=== PATIENT | male | born 1950 | race Caucasian/White ===

== ENCOUNTER 2020-12-24 18:34 | Emergency (ER) | payer MEDICARE ==
[~2020-12-24] VITALS: Ht 182.9 cm; Wt 64.2 kg
[2020-12-24 20:19] LABS: BASO # 0.1 x10^3/uL (0.0-0.2); BASO % 1 % (0-3); EOS # 0.1 x10^3/uL (0.0-0.7); EOS % 1 % (0-3); HEMATOCRIT 34.3 % (39.0-53.0); HEMOGLOBIN 11.7 g/dL (13.0-17.5); LYMPH # 1.2 x10^3/uL (1.0-4.8); LYMPH % 12 % (24-48); MEAN CORPUSCULAR HEMOGLOBIN 34 pg (25-35); MEAN CORPUSCULAR HGB CONC 34 g/dL (31-37); MEAN CORPUSCULAR VOLUME 99 fL (79-100); MONO # 0.9 x10^3/uL (0.0-1.1); MONO % 9 % (0-9); NEUT % 78 % (31-73); PLATELET COUNT 312 x10^3/uL (140-400); RED BLOOD COUNT 3.48 x10^6/uL (4.30-5.70); RED CELL DISTRIBUTION WIDTH 13.4 % (11.5-14.5); WHITE BLOOD COUNT 10.2 x10^3/uL (4.0-11.0)
[2020-12-24 20:32] LABS: ALBUMIN 3.3 g/dL (3.4-5.0); ALBUMIN/GLOBULIN RATIO 0.9 (1.0-1.7); CALCIUM 8.8 mg/dL (8.5-10.1); CREATININE 1.1 mg/dL (0.7-1.3); GFR 66.4; POTASSIUM 4.5 mmol/L (3.5-5.1); TOTAL BILIRUBIN 0.7 mg/dL (0.2-1.0); TOTAL PROTEIN 6.8 g/dL (6.4-8.2)
[2020-12-24 20:34] LABS: BILIRUBIN,URINE NEG (NEG); CLARITY,URINE HAZY; COLOR,URINE YELLOW; GLUCOSE,URINE NEG (NEG); NITRITE,URINE NEG (NEG)
[2020-12-24 20:35] LABS: BACTERIA,URINE 0 /HPF (0-FEW); SQUAMOUS EPITHELIAL CELL,UR OCC /LPF; WBC,URINE RARE /HPF (0-4)
--- NOTE | 2020-12-24 20:36 | RAD ---
STUDY: 1. CT head without contrast 2. CT cervical spine without contrast INDICATION: Fall, recent head surgery for hematoma evacuation COMPARISON: None available TECHNIQUE: Axial CT imaging of the head and cervical spine performed without the use of intravenous contrast. Sagittal and coronal reformats were obtained. One or more of the following individualized dose reduction techniques were utilized for this examinat ion: 1. Automated exposure control 2. Adjustment of the mA and/or kV according to patient size 3. Use of iterative reconstruction technique. FINDINGS: CT HEAD: Postoperative changes of left craniotomy seen. There is a left hemispheric subdural fluid collection and, are perhaps related to recent surgery. There is a small left to right midline shift measuring ap proximately 6.5 mm with mild effacement of the left lateral ventricle. There is diffuse low-attenuati on in both periventricular regions perhaps small vessel ischemic changes. Visualized orbits, paranasal sinuses and the mastoid air cells are clear. CT CERVICAL SPINE: Normal sagittal alignment is preserved. The craniocervical and C1-2 articular relation is maintained. The vertebral body heights are preserved. There is narrowing of several intervertebral disc spaces i ncluding C4/5, C5/6 and C6/7 with osteophytic spurring. There is no acute compression fracture. No pr evertebral soft tissue swelling is identified. The airway is preserved. Axial imaging at base interve rtebral disc levels demonstrates mild disc osteophyte complex with mild central canal stenosis. IMPRESSION: CT HEAD: 1. Postoperative changes of left parietal craniotomy with fluid and pneumocephalus in the left hemis phere probably postoperative. There is mild [id number] midline shift of 6.5 mm.. Since the preop C T is not available, an interval change cannot be assessed. CT CERVICAL SPINE: 1. Spondylotic changes and multilevel disc degenerative changes are seen. No acute abnormality seen. Electronically signed by: Florinda Storm MD (12/24/2020 8:33 PM) [facility]
--- NOTE | 2020-12-24 21:57 | PHYS DOC ---
Past History Past Medical History: Depression, GERD, High Cholesterol, Other Additional Past Medical Histor: aortic valve stenosis, SDH, uncal herniation Past Surgical History: Other Alcohol Use: None General Adult EDM: Chief Complaint: MECHANICAL FALL HPI: HPI: Patient is a 70-year-old male presents after a fall. Patient was recently treated at for a subdural hematoma. Staff says that they found patient with his feet up in the bed and has had down on the floor. Patient was complaining of head and neck pain. Staff is unsure of how long patient was on the floor. Staff states patient is at baseline. Neuro exam is negative. Review of Systems: Review of Systems: Constitutional: Denies fever or chills Eyes: Denies change in visual acuity HENT: Denies nasal congestion or sore throat Respiratory: Denies cough or shortness of breath Cardiovascular: Denies chest pain or edema GI: Denies abdominal pain, nausea, vomiting, bloody stools or diarrhea : Denies dysuria Musculoskeletal: Reports neck and back pain Integument: Denies rash Neurologic: Denies headache, focal weakness or sensory changes Endocrine: Denies polyuria or polydipsia Lymphatic: Denies swollen glands Psychiatric: Denies depression or anxiety Physical Exam: PE: Constitutional: Well developed, well nourished, no acute distress, non-toxic appearance. [] HENT: Normocephalic, atraumatic, bilateral external ears normal, oropharynx moist, no oral exudates, nose normal. [] Eyes: PERRLA, EOMI, conjunctiva normal, no discharge. [] Neck: Normal range of motion, midline tenderness, denies supple, no stridor. [] Cardiovascular:Heart rate regular rhythm, no murmur [] Lungs & Thorax: Bilateral breath sounds clear to auscultation [] Abdomen: Bowel sounds normal, soft, no tenderness, no masses, no pulsatile masses. [] Skin: Warm, dry, no erythema, no rash. [] Back: Thoracic, midline tenderness, no CVA tenderness. [] Extremities: No tenderness, no cyanosis, no clubbing, ROM intact, no edema. [] Neurologic: Alert and oriented X 3, normal motor function, normal sensory f unction, no focal deficits noted. [] Psychologic: Affect normal, judgement normal, mood normal. [] Current Patient Data: Labs: Laboratory Tests Test 12/24/20 20:00 12/24/20 20:10 White Blood Count 10.2 x10^3/uL (4.0-11.0) Red Blood Count 3.48 x10^6/uL (4.30-5.70) L Hemoglobin 11.7 g/dL (13.0-17.5) L Hematocrit 34.3 % (39.0-53.0) L Mean Corpuscular Volume 99 fL (79-100) Mean Corpuscular Hemoglobin 34 pg (25-35) Mean Corpuscular Hemoglobin Concent 34 g/dL (31-37) Red Cell Distribution Width 13.4 % (11.5-14.5) Platelet Count 312 x10^3/uL (140-400) Neutrophils (%) (Auto) 78 % (31-73) H Lymphocytes (%) (Auto) 12 % (24-48) L Monocytes (%) (Auto) 9 % (0-9) Eosinophils (%) (Auto) 1 % (0-3) Basophils (%) (Auto) 1 % (0-3) Neutrophils # (Auto) 8.0 x10^3uL (1.8-7.7) H Lymphocytes # (Auto) 1.2 x10^3/uL (1.0-4.8) Monocytes # (Auto) 0.9 x10^3/uL (0.0-1.1) Eosinophils # (Auto) 0.1 x10^3/uL (0.0-0.7) Basophils # (Auto) 0.1 x10^3/uL (0.0-0.2) Sodium Level 140 mmol/L (136-145) Potassium Level 4.5 mmol/L (3.5-5.1) Chloride Level 105 mmol/L (98-107) Carbon Dioxide Level 28 mmol/L (21-32) Anion Gap 7 (6-14) Blood Urea Nitrogen 30 mg/dL (8-26) H Creatinine 1.1 mg/dL (0.7-1.3) Estimated GFR (Cockcroft-Gault) 66.4 BUN/Creatinine Ratio 27 (6-20) H Glucose Level 120 mg/dL (70-99) H Calcium Level 8.8 mg/dL (8.5-10.1) Total Bilirubin 0.7 mg/dL (0.2-1.0) Aspartate Amino Transferase (AST) 42 U/L (15-37) H Alanine Aminotransferase (ALT) 46 U/L (16-63) Alkaline Phosphatase 116 U/L (46-116) Total Protein 6.8 g/dL (6.4-8.2) Albumin 3.3 g/dL (3.4-5.0) L Albumin/Globulin Ratio 0.9 (1.0-1.7) L Urine Collection Type U cath Urine Color Yellow Urine Clarity Hazy Urine pH 6.0 Urine Specific Galva 1.025 Urine Protein Neg (NEG-TRACE) Urine Glucose (UA) Neg mg/dL (NEG) Urine Ketones (Stick) Neg mg/dL (NEG) Urine Blood Small (NEG) Urine Nitrite Neg (NEG) Urine Bilirubin Neg (NEG) Urine Urobilinogen Dipstick 1.0 mg/dL (0.2 mg/dL) Urine Leukocyte Esterase Neg (NEG) Urine RBC 11-20 /HPF (0-2) Urine WBC Rare /HPF (0-4) Urine Squamous Epithelial Cells Occ /LPF Urine Bacteria 0 /HPF (0-FEW) Vital Signs: Vital Signs Date Time Temp Pulse Resp B/P (MAP) Pulse Ox O2 Delivery O2 Flow Rate FiO2 12/24/20 18:54 98.2 73 18 119/69 (86) 96 Room Air EKG: EKG: [] Radiology/Procedures: Radiology/Procedures: [] Heart Score: C/O Chest Pain: No Risk Factors: Risk Factors: DM, Current or recent (<one month) smoker, HTN, HLP, family history of CAD, obesity. Risk Scores: Score 0 - 3: 2.5% MACE over next 6 weeks - Discharge Home Score 4 - 6: 20.3% MACE over next 6 weeks - Admit for Clinical Observation Score 7 - 10: 72.7% MACE over next 6 weeks - Early Invasive Strategies Course & Med Decision Making: Course & Med Decision Making Pertinent Labs and Imaging studies reviewed. (See chart for details) [] 70-year-old male who presents after a fall. Patient was recently treated at [facility] for a subdural hematoma. Patient was reporting head and neck pain after fall. Staff was unsure of how long patient was on the floor. CT of head and neck showed mild [id number] midline shift of 6.5 mm. Consulted [facility] and spoke with Brianda with . reviewed CT results and previous results from . He stated that CT results were improved and much better from a few weeks ago. All labs are unremarkable. UA is negative for infection. Patient will be sent back to rehab. Patient is not reporting any pain at this time. Patient neuro exam is negative and at baseline. Patient may experience soreness the next few days from falling out of bed. Inform staff patient to take ibuprofen and Tylenol for discomfort.Patient is hemodynamically stable and ready to be discharged back home. Transferred patient care to @ [id number] Disclaimer: Dinorah Disclaimer: This electronic medical record was generated, in whole or in part, using a voice recognition dictation system. Departure Departure: Impression: Primary Impression: Fall Qualified Codes: W19.XXXA - Unspecified fall, initial encounter Disposition: HOME / SELF CARE / HOMELESS Condition: STABLE Referrals: PCP,UNKNOWN (PCP) Patient Instructions: Fall Prevention and Home Safety, [id number] Additional Instructions: EMERGENCY DEPARTMENT GENERAL DISCHARGE INSTRUCTIONS Thank you for coming to [facility] (ED) today and trusting us with you care. We trust that you had a positivie experience in our Emergency Department. If you wish to speak to the department management, you may call the director at [phone]. YOUR FOLLOW UP INSTRUCTIONS ARE FOLLOWS: 1. Do you have a private Doctor? If you do not have a private doctor, please ask for a resource list of physicians or clinics that may be able to assist you with follow up care. 2. The Emergency Physician has interpreted your x-rays. The X-Ray specialist will also review them. If there is a change in the findings, you will be notified in 48 hours when at all possible. 3. A lab test or culture has been done, your results will be reviewed and you will be notified if you need a change in treatment. ADDITIONAL INSTRUCTIONS AND INFORMATION: 1. Your care today has been supervised by a physician who is specially trained in emergency care. Many problems require more than one evaluation for a complete diagnosis and treatment. We recommend that you schedule your follow up appointment as recommended to ensure complete treatment of you illness or injury. If you are unable to obtain follow up care and continue to have a problem, or if your condition worsens, we recommend that you return to the ED. 2. We are not able to safely determine your condition over the phone nor are we able to give sound medical advice over the phone. For these safety reasons, if you call for medical advice we will ask you to come to the ED for further evaluation. 3. If you have any questions regarding these discharge instructions please call the ED at [phone]. SAFETY INFORMATION: In the interest of safety, wellness, and injury prevention; we encourage you to wear your sealbelt, if you smoke; quite smoking, and we encourage family to use a protective helmet for bicycling and other sporting events that present an increased risk for head injury. IF YOUR SYMPTOMS WORSEN OR NEW SYMPTOMS DEVELOP, OR YOU HAVE CONCERNS ABOUT YOUR CONDITION; OR IF YOUR CONDITION WORSENS WHILE YOU ARE WAITING FOR YOUR FOLLOW UP APPOINTMENT; EITHER CONTACT YOUR PRIMARY CARE DOCTOR, THE PHYSICIAN WHOSE NAME AND NUMBER YOU WERE GIVEN, OR RETURN TO THE ED IMMEDIATELY. ADE SMITH APRN Dec 24, 2020 21:57
[2020-12-24 22:09] VITALS: BP 169/85
== END 2020-12-24 22:35 | disposition home or self-care (01) ==
LOC: ER 18:34
DX: S06.5X0A Traumatic subdural hemorrhage without loss of consciousness, initial encounter (principal); M54.2 Cervicalgia; K21.9 Gastro-esophageal reflux disease without esophagitis; E78.5 Hyperlipidemia, unspecified; W18.09XA Striking against other object with subsequent fall, initial encounter; Y93.89 Activity, other specified; Y92.89 Other specified places as the place of occurrence of the external cause; Y99.8 Other external cause status
CPT/HCPCS: 36415; 70450; 72125; 80053; 81001; 85025; 99284-25

== ENCOUNTER 2021-01-28 07:50 | Emergency (ER) | payer MEDICARE ==
[~2021-01-28] VITALS: Ht 182.9 cm; Wt 64.2 kg
[2021-01-28 07:56] VITALS: BP 134/65
--- NOTE | 2021-01-28 07:59 | PHYS DOC ---
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 The patient did not lose consciousness, the event was witnessed by staff were moving the patient in the bed and the patient has not changes behavior since the incident this morn ing. The patient complains of a slight headache from the trauma, but denies further symptoms. He does admit to a history of subdural hematoma in the past. He denies any blood thinner use, neck pain, further pain anywhere else, further traumatic events, fever, cough, shortness of breath. He was recently released from the [facility] wing of the correction this week. Review of Systems: Review of Systems: Constitutional: Denies fever or chills. Eyes: Denies change in vision, pain. HENT: Admits to head trauma, denies sore throat. Respiratory: Denies cough or shortness of breath. Cardiovascular: Denies chest pain or edema. GI: Denies abdominal pain, nausea. Musculoskeletal: Denies extremity pain, or extremity trauma. Skin: Denies rash, skin change. Neurologic: Denies headache, focal weakness. Psychiatric: Denies depression or anxiety. All other systems reviewed as negative except for what was mentioned in the HPI. Family History: Family History: Noncontributory Allergies: Allergies: Allergies Coded Allergies Type Severity Reaction Last Updated Verified No Known Drug Allergies 12/24/20 No Physical Exam: PE: Constitutional: No acute distress, non-toxic appearance. HENT: No overt signs of trauma over the scalp or head Eyes: PERRLA, EOMI, conjunctiva normal, no discharge. Neck: No cervical spinal tenderness, no paraspinal tenderness, normal range of m otion, supple, no stridor Cardiovascular: Heart rate regular rhythm. 2+ radial pulses Lungs & Thorax: No respiratory distress, symmetrical expansion. Abdomen: Soft, no tenderness Skin: Warm, dry. Extremities: No tenderness, no cyanosis, ROM intact, no edema. Neurologic: Alert and oriented at reported baseline. Normal motor function, normal sensory function, no focal deficits noted. GCS 15. Psychologic: Affect normal, judgment normal, mood normal. Current Patient Data: Vital Signs: Vital Signs Date Time Temp Pulse Resp B/P (MAP) Pulse Ox O2 Delivery O2 Flow Rate FiO2 01/28/21 07:56 98.5 61 16 134/65 98 Room Air Radiology/Procedures: Radiology/Procedures: ADDENDUM #1 Addendum: Previous study performed December 24, 2020 was obtained for comparison. The thickness of the subdural hematoma on the previous study was 70 mm. Therefore, has been a mild decrease in size of the subdural hematoma. In addition, the postoperative subdural air seen on the previous study has resolved. On the previous study, the midline shift from left to right was 7 mm and today's study, it is 5 mm. The partial effacement of the left lateral ventricle is unchanged. An old left occipital infarct is apparent as well. No new abnormality or new intracranial hemorrhage is seen from the prior study. Note-this addendum was discussed with emergency room physician at 9:02 AM on January 28, 2021. Electronically signed by: Danny Limon MD (01/28/2021 9:07 AM) [id number] ORIG[address]PORT [address] HEAD AND C-SPINE WO Clinical indications: Reason: head trauma NONCONTRAST HEAD CT COMPARISON: None available. Technique: Noncontrast axial cross sectional scanning of the head was performed. PQRS compliance Statement One or more of the following individualized dose reduction techniques were utilized for this study: 1. Automated exposure control 2. Adjustment of the mA and/or kV according to patient size 3. Use of iterative reconstruction technique Findings: There is a subacute and chronic left frontal parietal temporal subdural hematoma which measures 12 mm in greatest thickness. There are isodense subacute components of blood within it. No hyperdense blood components are seen indicate acute hemorrhage. There are 2 madelyn holes present within the left parietal area. There is midline shift from left to right of 5 mm. The left lateral ventricle is partially effaced. There is severe bilateral periventricular white matter hypodensity consistent chronic small vessel ischemic disease. Old infarcts of the cerebellum on both sides are seen. Old cortical infarcts of the medial aspect of the right occipital lobe and the posterior right parietal lobe and the right frontal lobe and the posterior left parietal lobe are seen. Moderate mucosal thickening of the left maxillary sinus is seen. No skull fracture or pneumocephalus is apparent. IMPRESSION: Moderate-sized subacute to chronic left frontal parietal temporal subdural hematoma is seen with midline shift from left to right of 5 mm and partial effacement of the left lateral ventricle. Severe chronic small vessel ischemic disease of the periventricular white matter. 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 NONCONTRAST CERVICAL SPINE CT TECHNIQUE: Noncontrast helical CT scanning of the cervical spine was performed. Multiplanar 2-D reconstructions were generated. FINDINGS: There is an acute fracture of the posterior C7 spinous process. Alignment of the cervical spine is normal and no perching of facet joints is seen. There is degenerative disc space narrowing and endplate spurring at C4-5 and C5-6. Mild degenerative facet arthropathy is present. IMPRESSION: Mark tapia's fracture of C7 spinous process. Electronically signed by: Danny Limon MD (01/28/2021 8:33 AM) [id number] DICTATED AND SIGNED BY: DANNY LIMON MD DATE: 01/28/21 09 CC: SHAHRIAR LEE DO; DESTINY DEMPSEY MD ~ CT HEAD AND C-SPINE WO Heart Score: C/O Chest Pain: No Course & Med Decision Making: Course & Med Decision Making Per chart review from the patient's last CT had on 12/24/2020, the patient had a subdural fluid collection in the left hemisphere with 6.5 mm of midline shift from left to right; on today's exam the midline shift is left to right 5 mm reduced from previous exam. I discussed the case with Dr. Limon the radiologist who compared the images from 12/24..The subdural was 17 mm reduced to 12 mm today when exam studies were compared. There is no further evidence for acute hemorrhage today per the radiologist. I discussed the case with Cherelle Alcantara, nurse practitioner from neurosurgery who will discuss the case with her attending and review images. The mark alejandraer's fracture at C7 appears to be new from previous study. The patient was placed in a soft cervical collar. 0923: I discussed the case with JB Wei from Dr. Contreras's practice neurosurgery on-call. They said the patient can follow-up next week and they will arrange for follow-up. They believe that the subdural hemorrhage is im proving, clear shoulder fracture does not need surgical intervention at this time and patient may wear a soft collar for comfort. I discussed this with the patient's as well as the patient. He was transferred back to [facility] in stable condition. There is no evidence for acute hemorrhage based on imaging today. Departure Departure: Impression: Primary Impression: Closed C7 fracture Additional Impression: Chronic subdural hematoma Disposition: [facility] ([facility]) Condition: STABLE Referrals: PCP,UNKNOWN (PCP) Patient Instructions: Cervical Collar Additional Instructions: You are seen in the emergency department for head trauma. Your images appear improved from your postoperative images from 1 month ago. 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 This does not need surgery. Your case was di scussed with the neurosurgeons who will follow you up next week in the clinic. They will call you at your nursing facility for further instructions on following up. You are discharged with a soft cervical collar which you may wear for comfort. Your CT scan did not show any acute bleeding in your brain. If you continue to have developing symptoms you need to be evaluated by a primary care physician. You should return to the ED if you develop worsening pain, numbness, tingling, weakness, vomiting, vision change, or any other new or concerning symptoms. SHAHRIAR LEE DO Jan 28, 2021 07:59
--- NOTE | 2021-01-28 08:35 | RAD ---
CT HEAD AND C-SPINE WO Clinical indications: Reason: head trauma NONCONTRAST HEAD CT COMPARISON: None available. Technique: Noncontrast axial cross sectional scanning of the head was performed. PQRS compliance Statement One or more of the following individualized dose reduction techniques were utilized for this study: 1. Automated exposure control 2. Adjustment of the mA and/or kV according to patient size 3. Use of iterative reconstruction technique Findings: There is a subacute and chronic left frontal parietal temporal subdural hematoma which dean ures 12 mm in greatest thickness. There are isodense subacute components of blood within it. No hyper dense blood components are seen indicate acute hemorrhage. There are 2 madelyn holes present within the left parietal area. There is midline shift from left to right of 5 mm. The left lateral ventricle is partially effaced. 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 Old infarcts of the cerebellum on both sides are seen. Old cortica l infarcts of the medial aspect of the right occipital lobe and the posterior right parietal lobe and the right frontal lobe and the posterior left parietal lobe are seen. Moderate mucosal thickening of the left maxillary sinus is seen. No skull fracture or pneumocephalus is apparent. IMPRESSION: Moderate-sized subacute to chronic left frontal parietal temporal subdural hematoma is se en with midline shift from left to right of 5 mm and partial effacement of the left lateral ventricle . Severe chronic small vessel ischemic disease of the periventricular white matter. 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 NONCONTRAST CERVICAL SPINE CT TECHNIQUE: Noncontrast helical CT scanning of the cervical spine was performed. Multiplanar 2-D recon structions were generated. FINDINGS: There is an acute fracture of the posterior C7 spinous process. Alignment of the cervical s pine is normal and no perching of facet joints is seen. There is degenerative disc space narrowing an d endplate spurring at C4-5 and C5-6. Mild degenerative facet arthropathy is present. 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 Electronically signed by: Zach Limon MD (01/28/2021 8:33 AM) [id number]
== END 2021-01-28 09:32 ==
LOC: ER 07:50
DX: S12.600A Unspecified displaced fracture of seventh cervical vertebra, initial encounter for closed fracture (principal); S06.5X0A Traumatic subdural hemorrhage without loss of consciousness, initial encounter; K21.9 Gastro-esophageal reflux disease without esophagitis; E78.5 Hyperlipidemia, unspecified; W22.8XXA Striking against or struck by other objects, initial encounter; Y93.89 Activity, other specified; Y92.89 Other specified places as the place of occurrence of the external cause; Y99.8 Other external cause status
CPT/HCPCS: 70450; 72125; 99284-25

== ENCOUNTER 2021-06-20 17:13 | Emergency (ER) | payer MEDICARE ==
[~2021-06-20] VITALS: Ht 182.9 cm; Wt 64.2 kg
--- NOTE | 2021-06-20 17:32 | RAD ---
EXAM: Head CT without contrast. HISTORY: Code stroke. TECHNIQUE: Computed tomographic images of the head were obtained without contrast. *One or more of the following individualized dose reduction techniques were utilized for this examina tion: 1. Automated exposure control. 2. Adjustment of the mA and/or kV according to patient size. 3. Use of iterative reconstruction technique. COMPARISON: 01/28/2021. FINDINGS: There is interval decreased size of a subdural hematoma along the left cerebral convexity m easuring approximately 10 mm in thickness, compared to a prior measurement of 18 mm. This reduction i s pertinently hypodense with a rim of increased density, favoring an acute or subacute on chronic carlee ology. There is no parenchymal hemorrhage. There is approximately 5 mm rightward midline shift, decre ased compared to the prior exam. There are scattered areas of encephalomalacia throughout the bilateral frontal lobes, left greater th an right occipital lobes and cerebellar hemispheres due to chronic infarction. There are superimposed scattered white matter changes due to chronic small vessel disease. There is cerebral volume loss. T he orbits and visualized paranasal sinuses are unremarkable. There is a small amount of left mastoid fluid. There aren't radiodense foreign bodies along the inner table of the left temporal bone. There are left parietal craniotomy changes. IMPRESSION: 1. Decrease in the size of a subdural hematoma along the left cerebral convexity measuring 10 mm in t hickness and associated with decreased midline shift, the appearance of which favors acute or subacut e hemorrhage superimposed on a chronic hematoma. This collection contains blood products of varying a ges. 2. Multiple bilateral chronic infarct superimposed on areas of decreased attenuation due to chronic s mall vessel disease. 3. Cerebral atrophy. 4. Left parietal and temporal postoperative changes. 5. MRI is more sensitive for acute infarction. Findings were discussed with Dr. Nunez in the ED at 1725 hours on 06/20/2021. FOR INTERNAL CODING PURPOSES RESULT CODE: (C) Electronically signed by: Dalia Gonzalez MD (06/20/2021 5:30 PM) [id number]
--- NOTE | 2021-06-20 17:46 | EKG ---
[address] [address] Test Date: 2021-06-20 Test Time: 17:38:59 Pat Name: LOS ADAM Department: Room: Gender: M Speech Lang Path Therapist: IDANIA : 1950 Requested By: JAH REZA Order Number: [id number] Reading MD: Measurements Intervals [place] Rate: 70 P: 33 NV: 150 QRS: 0 QRSD: 96 T: 99 QT: 414 QTc: 450 Interpretive Statements SINUS RHYTHM LEFTWARD AXIS LOW LIMB LEAD VOLTAGE ST & T ABNORMALITY, CONSIDER HIGH LATERAL ISCHEMIA OR LEFT VENTRICULAR STRAIN T ABNORMALITY IN ANTEROSEPTAL LEADS ABNORMAL ECG RI6.02 No previous ECG available for comparison
[2021-06-20 17:54] LABS: BASO # 0.1 x10^3/uL (0.0-0.2); BASO % 1 % (0-3); EOS # 0.3 x10^3/uL (0.0-0.7); EOS % 3 % (0-3); HEMATOCRIT 43.5 % (39.0-53.0); HEMOGLOBIN 14.6 g/dL (13.0-17.5); LYMPH # 2.3 x10^3/uL (1.0-4.8); LYMPH % 21 % (24-48); MEAN CORPUSCULAR HEMOGLOBIN 34 pg (25-35); MEAN CORPUSCULAR HGB CONC 34 g/dL (31-37); MEAN CORPUSCULAR VOLUME 100 fL (79-100); MONO # 0.9 x10^3/uL (0.0-1.1); MONO % 8 % (0-9); NEUT # 7.4 x10^3uL (1.8-7.7); NEUT % 68 % (31-73); PLATELET COUNT 199 x10^3/uL (140-400); RED BLOOD COUNT 4.33 x10^6/uL (4.30-5.70); RED CELL DISTRIBUTION WIDTH 13.2 % (11.5-14.5); WHITE BLOOD COUNT 10.9 x10^3/uL (4.0-11.0)
[2021-06-20 17:57] LABS: CREATININE 0.9 mg/dL (0.7-1.3); GFR 83.7; POTASSIUM 4.9 mmol/L (3.5-5.1)
--- NOTE | 2021-06-20 17:57 | PHYS DOC ---
Past History Past Medical History: Depression, GERD, High Cholesterol, Other Additional Past Medical Histor: aortic valve stenosis, SDH, uncal herniation (JAH REZA DO) Past Surgical History: Other Additional Past Surgical Histo: Brain (JAH REZA DO) Alcohol Use: None (JAH REZA DO) General Adult EDM: Chief Complaint: NEURO SYMPTOMS/DEFICITS HPI: HPI: 70-year-old male presents via EMS with concern for strokelike symptoms. The patient was at a care facility where he is getting rehabilitation from a previous hemorrhagic stroke. He went to sit down for dinner with his spouse and then stopped answering questions and was not moving. He was sitting in a chair and did not fall to the floor. The staff at the facility spoke to him and he was not responsive. They shined the light in his face and he became more responsive. The patient does not remember anything between the time of sitting down for the meal and waking up in the ambulance just prior to arrival in the emergency room. The patient does appear to be at his baseline at this time. He is on seizure medication. He has been taking all of his medications. (JAH REZA DO) Review of Systems: Review of Systems: Constitutional: Denies fever or chills Eyes: Denies change in visual acuity HENT: Denies nasal congestion or sore throat Respiratory: Denies cough or shortness of breath Cardiovascular: Denies chest pain or edema GI: Denies abdominal pain, nausea, vomiting, bloody stools or diarrhea : Denies dysuria Musculoskeletal: Denies back pain or joint pain Integument: Denies rash Neurologic: Neurological symptoms. Denies headache, focal weakness or sensory changes Endocrine: Denies polyuria or polydipsia Lymphatic: Denies swollen glands Psychiatric: Denies depression or anxiety (JAH REZA DO) Allergies: Allergies: Allergies Coded Allergies Type Severity Reaction Last Updated Verified No Known Drug Allergies 12/24/20 No (JAH REZA DO) Physical Exam: PE: Constitutional: Well developed, well nourished, no acute distress, non-toxic appearance. [] HENT: Normocephalic, atraumatic, bilateral external ears normal, oropharynx moist, no oral exudates, nose normal. [] Eyes: PERRLA, EOMI, conjunctiva normal, no discharge. [] Neck: Normal range of motion, no tenderness, supple, no stridor. [] Cardiovascular: Heart rate regular rhythm, no murmur [] Lungs & Thorax: Bilateral breath sounds clear to auscultation [] Abdomen: Bowel sounds normal, soft, no tenderness, no masses, no pulsatile masses. [] Skin: Warm, dry, no erythema, no rash. [] Back: No tenderness, no CVA tenderness. [] Extremities: No tenderness, no cyanosis, no clubbing, ROM intact, no edema. [] Neurologic: Alert and oriented X 3, normal motor function, normal sensory function, no focal deficits noted. [] Psychologic: Affect normal, judgement normal, mood normal. [] (JAH REZA DO) Current Patient Data: Vital Signs: Vital Signs Date Time Temp Pulse Resp B/P (MAP) Pulse Ox O2 Delivery O2 Flow Rate FiO2 06/20/21 17:43 69 16 138/62 (87) 97 Room Air 06/20/21 17:24 98.0 (JAH REZA DO) EKG: EKG: [] (JAH REZA DO) Radiology/Procedures: Radiology/Procedures: [] (JAH REZA DO) Heart Score: C/O Chest Pain: N/A Risk Factors: Risk Factors: DM, Current or recent (<one month) smoker, HTN, HLP, family history of CAD, obesity. Risk Scores: Score 0 - 3: 2.5% MACE over next 6 weeks - Discharge Home Score 4 - 6: 20.3% MACE over next 6 weeks - Admit for Clinical Observation Score 7 - 10: 72.7% MACE over next 6 weeks - Early Invasive Strategies (JAH REZA DO) Course & Med Decision Making: Course & Med Decision Making Pertinent Labs and Imaging studies reviewed. (See chart for details) The patient's head CT is significant for acute or subacute hemorrhage superimposed over the old hemorrhage. The patient appears to be at baseline at this time. This could have been a seizure but given the CT findings I have contacted [facility] where he had his previous care. They will review the images and contact us with recommendations. The rest the patient's work-up is pending. I am signing the patient out to Dr. Bee at 1800. [] (JAH REZA DO) Course & Med Decision Making I assumed care of patient after comprehensive signout from ER physician. I reviewed entirety of ER work-up so far and personally saw patient repeating certain aspects of history and physical exam with at bedside I discussed case with [facility] neurosurgery team, daytime physician still present during this discussion. Given presenting symptoms and all findings, they report that imaging actually looks much improved since last imaged and no indication for transfer or surgical intervention They discussed they were concern for absence seizure's in the setting of recent significant head trauma. Patient is in fact not taking any antiepileptics and so, joint decision was made with , patient and neurosurgery team to start 500 mg Keppra twice daily concerned as patient has episodes of " acting differently, sometimes he s tates that he is still in the [place] when he is clearly not" but this has been going on since his head injury. This might be his new normal versus delirious state given he is out of his routine Ultimately, I disclosed entirety of ER work-up and findings at length. Joint decision among myself patient and to discharge back to senior living with new prescription for 500 mg Keppra twice daily with close follow-up with outpatient neurosurgeon per their recommendations Strict return precautions were discussed at length with good understanding by patient and , subsequent instructions and report given to assisted living facility prior to return (MERLENE BEE DO) Dinorah Disclaimer: Dragon Disclaimer: This electronic medical record was generated, in whole or in part, using a voice recognition dictation system. (JAH REZA DO) Departure Departure: Impression: Primary Impression: Absence seizure Additional Impression: History of head injury Disposition: 01 HOME / SELF CARE / HOMELESS Condition: STABLE Referrals: DESTINY DEMSPEY MD (PCP) Additional Instructions: As discussed prior to ER departure, your vitals, physical exam and comprehensive ER work-up were nonconcerning for any emergent or surgical issues. Your CT head imaging and overall case was discussed with neurosurgeons at [facility] and recommendations were to discharge back to assisted living facility with new medication, antiseizure medication called Keppra which should be taken 500 mg twice daily. Please contact Dr. Rust first thing in the morning to review ER visit and need for close outpatient follow-up per their request. Any concerning signs or symptoms present prior to outpatient follow-up please do not hesitate to come back for repeat evaluation. It was a pleasure to take care of you and I wish you the best going forward Scripts Levetiracetam (KEPPRA) 500 Mg Tablet 1 TAB PO BID for seizure prophylaxis for 30 Days, #60 TAB 0 Refills Prov: MERLENE BEE DO 06/20/21 JAH REZA DO Jun 20, 2021 17:57 MERLENE BEE DO Jun 20, 2021 18:39
[2021-06-20 18:02] LABS: ALBUMIN 3.7 g/dL (3.4-5.0); TOTAL BILIRUBIN 0.7 mg/dL (0.2-1.0); TOTAL PROTEIN 7.4 g/dL (6.4-8.2)
--- NOTE | 2021-06-20 18:28 | RAD ---
AP chest. HISTORY: Altered mental status AP view was taken of the chest. Lungs are clear. Heart is normal in size. There is no effusion. IMPRESSION: 1. No acute chest disease. Electronically signed by: Jad Villanueva MD (06/20/2021 6:26 PM) [facility]
[2021-06-20 18:30] VITALS: BP 125/67
[2021-06-20] MEDS ORDERED: levETIRAcetam 500 MG TABLET PO SCH (18:30)
[2021-06-20] MEDS ORDERED: LEVE500T56 PO (18:38)
== END 2021-06-20 19:06 | disposition home or self-care (01) ==
LOC: ER 17:13
DX: R56.9 Unspecified convulsions (principal); R07.89 Other chest pain; R41.82 Altered mental status, unspecified; K21.9 Gastro-esophageal reflux disease without esophagitis; E78.00 Pure hypercholesterolemia, unspecified; Z87.828 Personal history of other (healed) physical injury and trauma
CPT/HCPCS: 36415; 70450; 71045; 80053; 84484; 85025; 85610; 85730; 93005; 99284-25

== ENCOUNTER 2021-07-20 18:07 | Emergency (ER) | payer MEDICARE ==
[~2021-07-20] VITALS: Ht 172.7 cm; Wt 63.0 kg
[~2021-07-20 18:07] MED LIST: LEVE500T56 PO
--- NOTE | 2021-07-20 18:21 | PHYS DOC ---
Past History Past Medical History: Depression, GERD, High Cholesterol, Other Additional Past Medical Histor: aortic valve stenosis, SDH, uncal herniation Past Surgical History: Other Additional Past Surgical Histo: Brain Alcohol Use: None Adult General HPI HPI Patient is a 70-year-old male with a past medical history of hemorrhagic stroke, hypertension, hyperlipidemia, anxiety, depression and dementia who presents from the [facility] with altered mental status. Per EMS in the facility around 5 PM patient became less responsive than usual and was drooling and did not seem to be responding or moving. Facility denies any recent travels, traumas, fevers, cold/flu/COVID symptoms, nausea, vomiting, diarrhea. States he has been getting his medicines as prescribed. Review of Systems Review of Systems Review of systems otherwise unremarkable except noted in HPI Allergies Allergies Allergies Coded Allergies Type Severity Reaction Last Updated Verified No Known Drug Allergies 12/24/20 No Physical Exam Physical Exam Constitutional: Well developed, appears malnourished, unresponsive, non-toxic appearance. [] HENT: Normocephalic, atraumatic, bilateral external ears normal, oropharynx moist, no oral exudates, nose normal. [] Eyes: Sluggish, 3 to 4 mm, , conjunctiva normal, no discharge. [] Neck: Normal range of motion, no tenderness, supple, no stridor. [] Cardiovascular:Heart rate regular rhythm, no murmur [] Lungs & Thorax: Bilateral breath sounds clear to auscultation [] Abdomen: soft, no masses, no pulsatile masses. [] Skin: Warm, dry, no erythema, no rash. [] Back: No tenderness, no CVA tenderness. [] Extremities: No tenderness, no cyanosis, no clubbing, ROM intact, no edema. [] Neurologic: GCS of E4, V4, M6, patient awake alert in no acute distress but seems to have an expressive aphasia which he does have supposedly at baseline but is reported to be worse now, will look at you when you talk to him and respond but it is gibberish and want follow commands, normal motor function, normal sensory function, NIH unable to be obtained. Patient able to sit, and stand but is unsteady on his feet [] EKG EKG [] Radiology/Procedures Radiology/Procedures [] One or more of the following individualized dose reduction techniques were utilized for this examination: 1. Automated exposure control 2. Adjustment of the mA and/or kV according to patient size 3. Use of iterative reconstruction technique. FINDINGS: Small mixed density left frontal subdural hematoma has slightly decreased in size, now 8 mm in thickness, previously 10 mm. The hematoma has unchanged mixed density with some old low density blood products and some more subacute intermediate density blood products. The mixed density appearance is unchanged from 06/20/2021. There is unchanged 2 to 3 mm rightward midline shift. There is no definite new intracranial hemorrhage. There are multiple areas of encephalomalacia including in the right and left cerebellar hemispheres, left occipital lobe, and bilateral frontal lobes, unchanged. There is moderate deep white matter hypoattenuation related to chronic microvascular disease. The ventricles and sulci are mildly enlarged there is no acute fracture. Left craniotomy. Paranasal sinuses and mastoid air cells are clear globes and orbits are intact. IMPRESSION: 1. Slightly decreased size of subacute on chronic left frontal subdural hematoma, now 8 mm in thickness. This has unchanged mixed density with some older low density blood products and more subacute intermediate density blood products. Unchanged 2-3 mm rightward midline shift. The mixed low and intermediate density appearance of the blood is unchanged from 06/20/2021. 2. No new intracranial hemorrhage. 3. 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 4. Mild volume loss and moderate white matter disease. FOR INTERNAL CODING PURPOSES Heart Score C/O Chest Pain: No Risk Factors: Risk Factors: DM, Current or recent (<one month) smoker, HTN, HLP, family his tory of CAD, obesity. Risk Scores: Risk Factors: DM, Current or recent (<one month) smoker, HTN, HLP, family history of CAD, obesity. Course & Med Decision Making Course & Med Decision Making Patient is a 70-year-old male with history of hemorrhagic stroke and other comorbidities who presents from the [facility] altered, and significantly less responsive than usual Vital signs not concerning. Physical exam noted above. Per facility no history of recent illnesses or traumas. No medication changes and keeping medication regimen per facility. Laboratory analysis notable for urinary tract infection and treated with Rocephin. CT notable for chronic subdural hematoma which is getting better. NIH of 5 given aphasia. Patient not a candidate for tPA Discussed patient with [facility] as patient's neurologist is there who felt he was appr opriate for admission to , neurologic consult and MRI. Discussed findings with family who agreed with plan of transfer and admission to [] Dragon Disclaimer Dragon Disclaimer This electronic medical record was generated, in whole or in part, using a voice recognition dictation system. Departure Departure: Impression: Primary Impression: Altered mental status Additional Impressions: Urinary tract infection Constipation Bladder calculus Disposition: 02 SHORT TERM HOSPITAL Condition: STABLE Referrals: DESTINY DEMPSEY MD (PCP) Problem Qualifiers DIXIE CRUZ MD Jul 20, 2021 18:21
--- NOTE | 2021-07-20 18:41 | RAD ---
EXAM: CT head without contrast INDICATION: Code stroke, left-sided weakness for one hour. History of bleed COMPARISON: CT head 06/20/2021 and 01/28/2021 TECHNIQUE: Axial CT imaging through the head without intravenous contrast. Sagittal and coronal refor mats were obtained. One or more of the following individualized dose reduction techniques were utilized for this examinat ion: 1. Automated exposure control 2. Adjustment of the mA and/or kV according to patient size 3. Use of iterative reconstruction technique. FINDINGS: Small mixed density left frontal subdural hematoma has slightly decreased in size, now 8 mm in thickn ess, previously 10 mm. The hematoma has unchanged mixed density with some old low density blood produ cts and some more subacute intermediate density blood products. The mixed density appearance is uncha nged from 06/20/2021. There is unchanged 2 to 3 mm rightward midline shift. There is no definite new intracranial hemorrhage. There are multiple areas of encephalomalacia includ ing in the right and left cerebellar hemispheres, left occipital lobe, and bilateral frontal lobes, u nchanged. There is moderate deep white matter hypoattenuation related to chronic microvascular diseas e. The ventricles and sulci are mildly enlarged there is no acute fracture. Left craniotomy. Paranasa l sinuses and mastoid air cells are clear globes and orbits are intact. IMPRESSION: 1. Slightly decreased size of subacute on chronic left frontal subdural hematoma, now 8 mm in thickne ss. This has unchanged mixed density with some older low density blood products and more subacute int ermediate density blood products. Unchanged 2-3 mm rightward midline shift. The mixed low and interme diate density appearance of the blood is unchanged from 06/20/2021. 2. No new intracranial hemorrhage. 3. 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 4. Mild volume loss and moderate white matter disease. FOR INTERNAL CODING PURPOSES Critical result: Findings discussed with DIXIE CRUZ MD at 07/20/2021 6:25PM. RESULT CODE: (C) Electronically signed by: Kanwal Cole MD (07/20/2021 6:39 PM) [id number]
[2021-07-20] MEDS ORDERED: IOHEXOL 350 MG/ML 100 ML VIAL. IV ONE (18:45)
[2021-07-20 19:14] LABS: BGAS PH 7.45 (7.35-7.46)
[2021-07-20 19:35] LABS: ANION GAP 10 (6-14); BLOOD UREA NITROGEN 16 mg/dL (8-26); BUN/CREATININE RATIO 16 (6-20); CALCIUM 8.7 mg/dL (8.5-10.1); CARBON DIOXIDE 26 mmol/L (21-32); CHLORIDE 105 mmol/L (98-107); GFR 74.1; GLUCOSE 109 mg/dL (70-99); POTASSIUM 4.5 mmol/L (3.5-5.1); SODIUM 141 mmol/L (136-145)
[2021-07-20 19:46] LABS: BASO # 0.1 x10^3/uL (0.0-0.2); BASO % 1 % (0-3); EOS # 0.4 x10^3/uL (0.0-0.7); EOS % 3 % (0-3); HEMATOCRIT 40.3 % (39.0-53.0); HEMOGLOBIN 13.5 g/dL (13.0-17.5); LYMPH # 1.8 x10^3/uL (1.0-4.8); LYMPH % 16 % (24-48); MEAN CORPUSCULAR HEMOGLOBIN 33 pg (25-35); MEAN CORPUSCULAR HGB CONC 34 g/dL (31-37); MEAN CORPUSCULAR VOLUME 98 fL (79-100); MONO # 0.9 x10^3/uL (0.0-1.1); MONO % 8 % (0-9); NEUT # 8.1 x10^3uL (1.8-7.7); NEUT % 72 % (31-73); PLATELET COUNT 176 x10^3/uL (140-400); RED CELL DISTRIBUTION WIDTH 12.6 % (11.5-14.5); WHITE BLOOD COUNT 11.3 x10^3/uL (4.0-11.0)
[2021-07-20 19:47] LABS: ALBUMIN 3.7 g/dL (3.4-5.0); ALBUMIN/GLOBULIN RATIO 1.3 (1.0-1.7); ALK PHOS 131 U/L (46-116); ALT (SGPT) 30 U/L (16-63); AST (SGOT) 20 U/L (15-37); MAGNESIUM 2.2 mg/dL (1.8-2.4); TOTAL BILIRUBIN 0.7 mg/dL (0.2-1.0); TOTAL PROTEIN 6.6 g/dL (6.4-8.2)
[2021-07-20 19:53] LABS: C REACTIVE PROTEIN < 0.5 mg/L (0-3.3)
[2021-07-20] MEDS ORDERED: MIDAZOLAM HCL PF 5 MG/5 ML VIAL. IV ONE ×2 (20:00→20:30)
--- NOTE | 2021-07-20 20:08 | EKG ---
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
[2021-07-20 20:20] LABS: COLOR,URINE YELLOW
[2021-07-20 20:21] LABS: INFLUENZA A PATIENT NEGATIVE (NEGATIVE); INFLUENZA B PATIENT NEGATIVE (NEGATIVE)
[2021-07-20 20:21] LABS: BACTERIA,URINE FEW /HPF (0-FEW); BILIRUBIN,URINE NEG (NEG); CLARITY,URINE CLOUDY; GLUCOSE,URINE NEG (NEG); NITRITE,URINE NEG (NEG); WBC,URINE TNTC /HPF (0-4)
--- NOTE | 2021-07-20 21:30 | RAD ---
EXAMINATION: CT chest, abdomen and pelvis without IV contrast. INDICATION:70 years, Male, history of old subdural hematoma, new deficient. TECHNIQUE: Axial CT images of the chest, abdomen and pelvis were obtained. Coronal and sagittal refor matted performed. COMPARISON: None. Exposure: One or more of the following individualized dose reduction techniques were utilized for thi s examination: 1. Automated exposure control 2. Adjustment of the mA and/or kV according to patient size 3. Use of iterative reconstruction technique. FINDINGS: CHEST: Visualized thyroid and esophagus are unremarkable. Multiple calcified mediastinal and right hilar lym ph nodes. No lymphadenopathy in the chest by size criteria. No cardiomegaly or pericardial effusion. Severe coronary artery atherosclerotic calcifications. Normal caliber thoracic aorta and pulmonary ar teries. Central airways are patent. No focal consolidation, pleural effusion or pneumothorax. Subsegmental at electasis and/or scarring in bibasilar lungs. No suspicious pulmonary nodule. Calcified granuloma in the right lower lobe. ABDOMEN/PELVIS: Within the limitation of noncontrast exam, Subcentimeter hypodensities in both hepatic lobes, too small to characterize. Calcified granulomas in the liver and spleen. Mild splenomegaly measures up to 14 cm in length. Unremarkable gallbladder. No biliary ductal dilation. Mildly atrophic pancreatic parenchyma. No adrenal nodule. No hydronephrosis or nephrolithiasis. Large amount of colorectal stool burden. Normal appendix. No bowel dilation. Moderate aortoiliac athe rosclerotic calcifications without dilation. No pneumoperitoneum or ascites. No lymphadenopathy in th e abdomen or pelvis by size criteria. Pelvic structures are partially obscured by streaking artifact from right hip prosthesis and left fixation hardware. Decompressed urinary bladder which limits evalu ation. Foleys catheter in place with nondependent gas. There is a 1.3 cm urinary bladder calculus. Co arse calcifications in the prostate. MUSCULOSKELETAL STRUCTURES: Diffuse osteopenia. Chronic appearing multiple mild vertebral body compression fractures of the thora columbar spine. Multilevel degenerative changes in the thoracolumbar spine. Right hip prosthesis. Fix ation hardware in the left femur. There is a 5.3 cm intermuscular lipoma in the right upper extremity . IMPRESSION: 1. No acute intrathoracic or intra-abdominal process. 2. Large amount of colorectal stool burden. Correlate for constipation. 3. Mild splenomegaly. 4. A 1.3 cm urinary bladder calculus. 5. Other chronic/incidental findings, as described above. Electronically signed by: Dashawn Bobo MD (07/20/2021 9:28 PM) [facility]
[2021-07-20] MEDS ORDERED: IV NORMAL SALINE 50ML 50 ML ONE (21:36)
[2021-07-20] MEDS ORDERED: cefTRIAXone SODIUM 1 GM VIAL ONE (21:36)
[2021-07-20] MEDS ORDERED: IV RINGERS SOLUTION,LACTATED 1,000 ML IV ONE (23:00)
[2021-07-20 23:21] VITALS: BP 133/65
== END 2021-07-20 23:10 | disposition short-term general hospital (02) ==
LOC: ER 18:43
DX: N39.0 Urinary tract infection, site not specified (principal); R41.82 Altered mental status, unspecified; K59.00 Constipation, unspecified; N21.0 Calculus in bladder; K21.9 Gastro-esophageal reflux disease without esophagitis; E78.00 Pure hypercholesterolemia, unspecified; I10 Essential (primary) hypertension; E78.5 Hyperlipidemia, unspecified; F41.9 Anxiety disorder, unspecified; F03.90 Unspecified dementia, unspecified severity, without behavioral disturbance, psychotic disturbance, mood disturbance, and anxiety; F32.9 Major depressive disorder, single episode, unspecified; Z20.822 Contact with and (suspected) exposure to COVID-19
CPT/HCPCS: 36600; 70450; 71250; 74176; 80053; 81001; 82803; 82947; 83605; 83735; 83880; 84443; 84484; 85025; 86140; 87040; 87086; 87186; 87428; 93005; 96360; 96365; 96375; 99285; J0696; J2250; J7120; Q9967; U0003